=== PATIENT | female | born 1980 ===

== ENCOUNTER → 2022-01-23 09:30 | Outpatient (CLI) | payer OTHER, SELFPAY ==
--- NOTE | 2022-01-23 | DI.US.S_ITS ---
LIMITED ULTRASOUND OF LEFT BREAST AND AXILLA: 01/23/2022 CLINICAL: Patient returns today to evaluate a focal asymmetry in the left breast. Comparison is made to exams dated: 01/23/2022 mammogram - [facility] and 05/15/2021 mammogram - outside location. Real-time and Doppler ultrasound of the left breast 6 o'clock, and axilla regions were performed. Villalpando scale images of the real-time examination were reviewed. There is a 0.9 cm x 0.5 cm x 0.7 cm oval mass with a circumscribed margin in the left breast at 6 o'clock anterior depth. This oval mass is hypoechoic. No significant abnormalities were seen sonographically in the left axilla. IMPRESSION: PROBABLY BENIGN The 0.9 cm x 0.5 cm x 0.7 cm oval mass in the left breast is probably benign. A follow-up in 6 months is recommended. A follow-up mammogram and an ultrasound in 6 months is recommended to demonstrate stability. This exam was interpreted at Station ID: [id number]. Electronically Signed By: Tim Lynn M.D. /:01/23/2022 11:34:10 letter sent: Followup Recommended Ultrasound BI-RADS: 3 Probably benign
--- NOTE | 2022-01-23 | DI.MG.S_ITS ---
UNILATERAL LEFT DIGITAL DIAGNOSTIC MAMMOGRAM 3D/2D WITH ADDITIONAL VIEWS: 01/23/2022 CLINICAL: Additional evaluation requested from prior study. Comparison is made to exam dated: 05/15/2021 mammogram - outside location. The left breast is heterogeneously dense, which may obscure small masses (category c / 51-75% glandular tissue). There is a 0.9 cm focal asymmetry in the left breast at 6 o'clock anterior depth. No other significant masses or calcifications are seen in the breast. IMPRESSION: INCOMPLETE: NEEDS ADDITIONAL IMAGING EVALUATION The 0.9 cm focal asymmetry in the left breast is indeterminate. An ultrasound is recommended. Future imaging is recommended as follows: 05/15/2022 left mammogram and an ultrasound. Based on the Tyrer Cuzick model (a risk assessment model) the patient's lifetime risk is 11.1% and her 10 year risk is 1.6%. According to the ACR, ACS, and NCCN guidelines, an annual breast MRI exam along with mammogram is recommended if the patient's lifetime risk is 20% or greater. This exam was interpreted at Station ID: [id number]. NOTE: For mammograms, a report in lay terms will be sent to the patient. Approximately 15% of breast malignancies will not be visualized mammographically. In the management of a palpable breast mass, a negative mammogram must not discourage biopsy of a clinically suspicious lesion. Electronically Signed By: Tim perales/maria eugenia:01/23/2022 11:30:08 letter sent: Additional Imaging Needed ACR BI-RADS Category 0: Incomplete 3340F
== END ==
PROVIDERS: PCP Physician Assistant; Referring Provider Physician Assistant; Visit Provider Physician Assistant
DX: N64.89 Other specified disorders of breast (principal); N63.25 Unspecified lump in the left breast, overlapping quadrants
CPT/HCPCS: 76642; 77065; G0279

== ENCOUNTER → 2022-11-09 | Outpatient (CLI) | payer OTHER, SELFPAY ==
--- NOTE | 2022-11-09 | DI.US.S_ITS ---
ULTRASOUND OF LEFT BREAST: 11/09/2022 CLINICAL: Patient returns today to evaluate a focal asymmetry in the left breast. Comparison is made to exams dated: 11/09/2022 mammogram, 01/23/2022 ultrasound, 01/23/2022 mammogram - [facility], 05/15/2021 mammogram - [facility], and 05/15/2021 mammogram - outside location. Color flow and real-time ultrasound of the left breast were performed. Villalpando scale images of the real-time examination were reviewed. There is a 0.9 cm x 0.5 cm x 0.7 cm wider than tall oval cyst in the left breast at 6 o'clock anterior depth 1 cm from the nipple. This oval cyst is hypoechoic with a well-defined boundary and internal echoes. This abnormality is not significantly changed. IMPRESSION: PROBABLY BENIGN The 0.9 cm x 0.5 cm x 0.7 cm wider than tall oval cyst in the left breast most likely is a complicated cyst and is probably benign. A follow-up left ultrasound in 6 months is recommended to document care home stability. If stable, then patient can then be returned to annual screening schedule which will be due in approximately one year from now (October 2023). Findings and recommendations were conveyed to the patient during today's evaluation. This exam was interpreted at Station ID: [id number]. Electronically Signed By: Virgil Roberts M.D. aty/:11/09/2022 14:32:04 letter sent: Followup Recommended Ultrasound BI-RADS: 3 Probably benign
--- NOTE | 2022-11-09 | DI.MG.S_ITS ---
BILATERAL DIGITAL DIAGNOSTIC MAMMOGRAM 3D/2D: 11/09/2022 CLINICAL: Short term follow up of the left breast, due for bilateral imaging. Comparison is made to exams dated: 01/23/2022 ultrasound, 01/23/2022 mammogram - , and 05/15/2021 mammogram - [facility]. Both breasts are heterogeneously dense, which may obscure small masses (category c / 51-75% glandular tissue). There is a 0.8 cm focal asymmetry in the left breast at 6 o'clock anterior depth. This has not significantly changed. No other significant masses, calcifications, or other findings are seen in either breast. IMPRESSION: INCOMPLETE: NEEDS ADDITIONAL IMAGING EVALUATION The 0.8 cm focal asymmetry in the left breast is indeterminate. An ultrasound is recommended for further evaluation and is scheduled to immediately follow this examination. Based on the Tyrer Cuzick model (a risk assessment model) the patient's lifetime risk is 11.5% and her 10 year risk is 1.8%. According to the ACR, ACS, and NCCN guidelines, an annual breast MRI exam along with mammogram is recommended if the patient's lifetime risk is 20% or greater. This exam was interpreted at Station ID: [id number]. NOTE: For mammograms, a report in lay terms will be sent to the patient. Approximately 15% of breast malignancies will not be visualized mammographically. In the management of a palpable breast mass, a negative mammogram must not discourage biopsy of a clinically suspicious lesion. Electronically Signed By: Virgil Roberts M.D. aty/:11/09/2022 14:06:49 ACR BI-RADS Category 0: Incomplete 3340F
== END ==
LOC: MAMMO 13:21
PROVIDERS: PCP Physician Assistant; Referring Provider Physician Assistant; Visit Provider Physician Assistant
DX: N60.02 Solitary cyst of left breast (principal); R92.8 Other abnormal and inconclusive findings on diagnostic imaging of breast
CPT/HCPCS: 76642; 77066; G0279

== ENCOUNTER → 2023-07-05 14:16 | Outpatient (CLI) | payer OTHER, SELFPAY ==
--- NOTE | 2023-07-05 | DI.US.S_ITS ---
LIMITED ULTRASOUND OF LEFT BREAST: 07/05/2023 CLINICAL: 6 month follow up left breast. Comparison is made to exams dated: 11/09/2022 ultrasound, 11/09/2022 mammogram, 01/23/2022 ultrasound, 01/23/2022 mammogram - [facility], 05/15/2021 mammogram - [facility], and 05/15/2021 mammogram - outside location. Color flow and real-time ultrasound of the left breast 6 o'clock region were performed. Villalpando scale images of the real-time examination were reviewed. There is a 0.9 cm x 0.4 cm x 0.7 cm wider than tall oval cyst in the left breast at 6 o'clock anterior depth 1 cm from the nipple. This oval cyst is hypoechoic with a well-defined boundary and internal echoes. This abnormality is not significantly changed. IMPRESSION: PROBABLY BENIGN The 0.9 cm x 0.4 cm x 0.7 cm wider than tall oval cyst in the left breast most likely is a complicated cyst and is probably benign. A follow-up bilateral mammogram and a left ultrasound in 6 months is recommended to document half-way stability. Findings and recommendations were conveyed to the patient during today's evaluation. This exam was interpreted at Station ID: [id number]. Electronically Signed By: Virgil macario/:07/08/2023 18:10:08 letter sent: Followup Recommended Ultrasound BI-RADS: 3 Probably benign
== END ==
LOC: US 14:16
PROVIDERS: PCP Physician Assistant; Referring Provider Nurse Practitioner Family; Visit Provider Nurse Practitioner Family
DX: R92.8 Other abnormal and inconclusive findings on diagnostic imaging of breast (principal); N60.02 Solitary cyst of left breast
CPT/HCPCS: 76642

== ENCOUNTER → 2024-03-06 13:22 | Outpatient (CLI) | payer OTHER, SELFPAY ==
--- NOTE | 2024-03-06 13:23 | DI.US.S_ITS ---
LIMITED ULTRASOUND OF LEFT BREAST: 03/06/2024 CLINICAL: Patient returns today to evaluate a focal asymmetry in the left breast. Comparison is made to exams dated: 03/06/2024 mammogram, 07/05/2023 ultrasound, 11/09/2022 ultrasound, 11/09/2022 mammogram, 01/23/2022 ultrasound, and 01/23/2022 mammogram - [facility]. Ultrasound of was performed. There is a benign 0.8 cm x 0.4 cm x 0.7 cm oval mass with a circumscribed margin in the left breast at 6 o'clock in the retroareolar region. This oval mass is hypoechoic. This correlates with mammography findings. This finding is stable since 01/23/2022. IMPRESSION: BENIGN Left breast 0.8 cm oval circumscribed mass at 6 o'clock position, stable since January 2022. Given over 2 year stability of this finding is consistent with a benign etiology. No mammographic or sonographic evidence of malignancy. A 1 year screening mammogram is recommended. Findings and recommendations were conveyed to the patient during today's evaluation. This exam was interpreted at Station ID: [id number]. Electronically Signed By: Maria Toribio M.D., Ph.D. eb/:03/06/2024 14:57:39 letter sent: Normal Exam ACR BI-RADS Category 2: Benign
--- NOTE | 2024-03-06 13:23 | DI.MG.S_ITS ---
BILATERAL DIGITAL DIAGNOSTIC MAMMOGRAM 3D/2D: 03/06/2024 Comparison is made to exams dated: 11/09/2022 mammogram, 01/23/2022 mammogram - [facility], and 05/15/2021 mammogram - [facility]. The breasts are heterogeneously dense, which may obscure small masses (category c / 51-75% glandular tissue). There is a 0.9 cm focal asymmetry in the left breast at 6 o'clock anterior depth. This finding is not significantly changed since mammogram 01/23/2022. No other significant masses, calcifications, or other findings are seen in either breast. IMPRESSION: INCOMPLETE: NEED ADDITIONAL IMAGING EVALUATION Left breast focal asymmetry at 6 o'clock anterior depth, stable since January 2022. An ultrasound is recommended for further evaluation and is scheduled to immediately follow this examination. Based on the Tyrer Cuzick model (a risk assessment model) the patient's lifetime risk is 11.4% and her 10 year risk is 2.0%. According to the ACR, ACS, and NCCN guidelines, an annual breast MRI exam along with mammogram is recommended if the patient's lifetime risk is 20% or greater. This exam was interpreted at Station ID: [id number]. NOTE: For mammograms, a report in lay terms will be sent to the patient. Approximately 15% of breast malignancies will not be visualized mammographically. In the management of a palpable breast mass, a negative mammogram must not discourage biopsy of a clinically suspicious lesion. Electronically Signed By: Maria Toribio M.D., Ph.D. eb/:03/06/2024 14:54:07 Entry: - 03/09/2024 12:10:40 letter sent: Need Ultrasound ACR BI-RADS Category 0: Incomplete: Need Additional Imaging Evaluation
== END ==
PROVIDERS: PCP Student in an Organized Health Care Education/Training Program; Referring Provider Student in an Organized Health Care Education/Training Program; Visit Provider Student in an Organized Health Care Education/Training Program
DX: R92.8 Other abnormal and inconclusive findings on diagnostic imaging of breast (principal); N63.25 Unspecified lump in the left breast, overlapping quadrants; R92.333 Mammographic heterogeneous density, bilateral breasts
CPT/HCPCS: 76642; 77066; G0279